=== PATIENT | male | born 1960 | race Two or more races ===

== ENCOUNTER 2016-10-14 04:19 | Emergency (ER) | payer OTHER ==
[~2016-10-14] VITALS: Ht 180.3 cm; Wt 66.7 kg
[2016-10-14] MEDS ORDERED: HYDROCODONE/APAP 5/325MG 1 EACH TABLET PO ONE (05:00)
[2016-10-14] MEDS ORDERED: HYDROCODONE/APAP 10/325MG 1 EA TABLET ONE (05:00)
[2016-10-14] MEDS ORDERED: HYDROCODONE/APAP 5/325MG 1 EACH TABLET ONE (05:01)
--- NOTE | 2016-10-14 05:05 | NUR ---
XRAY AT BEDSIDE
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
[2016-10-14 05:48] VITALS: BP 104/73
== END 2016-10-14 05:04 ==
LOC: ER 04:24
DX: S40.011A Contusion of right shoulder, initial encounter (principal); W10.8XXA Fall (on) (from) other stairs and steps, initial encounter; Y93.89 Activity, other specified; Y92.89 Other specified places as the place of occurrence of the external cause; Y99.8 Other external cause status
CPT/HCPCS: 71010-TC; 73010-TC; 73030-TC; 73140-TC; A4606; Z7610